=== PATIENT | male | born 1995 | race Two or more races ===

== ENCOUNTER 2023-10-11 13:52 | Emergency (ER) | payer OTHER ==
[~2023-10-11] VITALS: Ht 167.6 cm; Wt 99.8 kg
[2023-10-11 16:23] LABS: HEMATOCRIT 38.2 % (39.0-48.0); HEMOGLOBIN 13.3 g/dL (13-16.00); MEAN CELL VOLUME 81.5 fL (80.0-100.00); MEAN CORPUSCULAR HEMOGLOBIN 28.4 pg (27.00-32.0); MEAN CORPUSCULAR HGB CONC 34.8 g/dl (32.0-36.0); PLATELET COUNT 228 K/uL (150-450); RED BLOOD COUNT 4.69 M/uL (4.00-6.00); RED CELL DISTRIBUTION WIDTH 13.8 % (11.5-14.5)
[2023-10-11 18:29] LABS: CALCIUM 9.2 mg/dL (8.5-10.1); CREATININE SERUM 0.62 mg/dL (0.70-1.30); GFR 155.61; POTASSIUM 3.73 mEq/L (3.5-5.1)
[2023-10-11 18:40] LABS: ABG PH 7.448 (7.35-7.45); ABG PO2 82.6 mmHg (80-100); ABG pCO2 33.4 mmHg (35-45); BASE EXCESS -0.6 mmol/l; BICARBONATE 22.6 mmol/l (23-25); SaO2 96.6 %; Tco2 23.6 mmol/l; allen test SATISFACTORY; o2 21 %; puncture site RADIAL RIGHT
[2023-10-11] MEDS ORDERED: MEDROLPACK PO (20:48)
[2023-10-11] MEDS ORDERED: ZITHROMAX500 MG PO (20:48)
[2023-10-11] MEDS ORDERED: ALBUTEROL1.25 MG/3 IH (20:48)
[2023-10-12] MEDS ORDERED: LEVOFLOXACIN750 MG PO (15:05)
== END 2023-10-11 21:12 | disposition home or self-care (01) ==
LOC: ER 13:52
PROVIDERS: Emergency Medicine
DX: J20.9 Acute bronchitis, unspecified (principal); Z20.822 Contact with and (suspected) exposure to COVID-19

== ENCOUNTER 2023-10-12 10:55 | Emergency (ER) | payer OTHER ==
[~2023-10-12] VITALS: Ht 167.6 cm; Wt 99.8 kg
[~2023-10-12 10:55] MED LIST: ALBUTEROL1.25 MG/3 IH; MEDROLPACK PO; ZITHROMAX500 MG PO
[2023-10-12 13:02] LABS: HEMATOCRIT 38.1 % (39.0-48.0); HEMOGLOBIN 13.3 g/dL (13-16.00); MEAN CELL VOLUME 81.7 fL (80.0-100.00); MEAN CORPUSCULAR HEMOGLOBIN 28.5 pg (27.00-32.0); MEAN CORPUSCULAR HGB CONC 34.9 g/dl (32.0-36.0); PLATELET COUNT 227 K/uL (150-450); RED BLOOD COUNT 4.66 M/uL (4.00-6.00); RED CELL DISTRIBUTION WIDTH 14.4 % (11.5-14.5)
[2023-10-12 13:22] LABS: ALBUMIN 4.1 gm/dL (3.4-5.0); BILIRUBIN TOTAL 1.07 mg/dL (0.3-1.2); CALCIUM 9.6 mg/dL (8.5-10.1); CREATININE SERUM 0.76 mg/dL (0.70-1.30); GFR 123.03; GLOBULINA 4.5 G/DL (2.4-3.5); POTASSIUM 3.92 mEq/L (3.5-5.1); TOTAL PROTEIN 8.6 gm/dL (6.4-8.2)
[2023-10-12] MEDS ORDERED: LEVOFLOXACIN750 MG PO (15:05)
== END 2023-10-12 15:55 | disposition home or self-care (01) ==
LOC: ER 10:56
PROVIDERS: General Practice
DX: J18.9 Pneumonia, unspecified organism (principal); R06.02 Shortness of breath; R53.81 Other malaise